=== PATIENT | male | born 1965 | race Caucasian/White ===

== ENCOUNTER 2020-10-03 21:17 | Emergency (ER) | payer OTHER ==
[2020-10-04 00:22] LABS: Absolute Lymphocytes (CBC) 1.7 K/uL (0.7-4.9); Basophils % 1.2 % (0-1.3); Hematocrit 41.4 % (39.6-49.0); Lymphocytes % 24.3 % (15.3-44.8); MPV 7.7 fL (7.6-11.3); RBC Red Blood Cell Count 4.02 M/uL (4.33-5.43)
[2020-10-04 00:33] LABS: ALT/SGPT 46 U/L (12-78); AST/SGOT 36 U/L (15-37); Albumin 3.8 g/dL (3.4-5.0); Alkaline Phosphatase 63 U/L (45-117); BUN Blood Urea Nitrogen 10 mg/dL (7-18); Bicarbonate 27 mmol/L (21-32); Bilirubin Total 0.6 mg/dL (0.2-1.0); Glucose Level 75 mg/dL (74-106); Potassium 3.9 mmol/L (3.5-5.1); Sodium Level 129 mmol/L (136-145)
--- NOTE | 2020-10-04 00:51 | EDPHYS ---
Physician Documentation [facility] Name: Juni Soloroi Age: 55 yrs Sex: Male : 1965 Arrival Date: 10/03/2020 Time: 21:20 Bed 18 Private MD: Lennox Cummings T ED Physician Thiago Moody HPI: 10/03 23:39 This 55 yrs old Male presents to ER via Ambulatory with complaints of pm1 Diarrhea, Cough, Sweats, chills. 23:39 The patient presents to the emergency department with diarrhea, cough. Onset: The pm1 symptoms/episode began/occurred yesterday. Possible causes: unknown, sick contacts, by a significant other, similar symptoms. The symptoms are aggravated by nothing. The symptoms are alleviated by nothing. Associated signs and symptoms: Pertinent negatives: shortness of breath, chest pain. Severity of symptoms: in the emergency department the symptoms are unchanged. The patient has not recently seen a physician. Patient presents to ER with complaints of diarrhea cough congestion and chills. Patient reports a history of pica, chewing ice.. Historical: - Allergies: 21:56 No Known Allergies; ca1 - PMHx: 21:56 Depressive disorder; Hypercholesterolemia; ca1 - Immunization history:: Client reports having NOT received the Covid vaccine. - Social history:: Smoking status: Patient reports the use of cigarette tobacco products, smokes one-half pack cigarettes per day. ROS: 23:39 Cardiovascular: Negative for chest pain, palpitations, and edema. pm1 23:39 MS/Extremity: Negative for injury and deformity, Skin: Negative for injury, rash, and discoloration. 23:39 Constitutional: Positive for chills, fatigue, Negative for fever, poor PO intake. 23:39 Respiratory: Positive for cough, Negative for shortness of breath, sputum production. 23:39 Abdomen/GI: Positive for diarrhea, Negative for abdominal pain, nausea and vomiting. 23:39 All other systems are negative. Exam: 23:39 Constitutional: This is a well developed, well nourished patient who is awake, alert, pm1 and in no acute distress. Head/Face: Normocephalic, atraumatic. Cardiovascular: Regular rate and rhythm with a normal S1 and S2. No gallops, murmurs, or rubs. Normal PMI, no JVD. No pulse deficits. Respiratory: Lungs have equal breath sounds bilaterally, clear to auscultation and percussion. No rales, rhonchi or wheezes noted. No increased work of breathing, no retractions or nasal flaring. Abdomen/GI: Soft, non-tender, with normal bowel sounds. No distension or tympany. No guarding or rebound. No evidence of tenderness throughout. Back: No spinal tenderness. No costovertebral tenderness. Full range of motion. Skin: Warm, dry with normal turgor. Normal color with no rashes, no lesions, and no evidence of cellulitis. MS/ Extremity: Pulses equal, no cyanosis. Neurovascular intact. Full, normal range of motion. 23:39 Eyes: Exam is negative for acute changes. 23:39 ENT: Exam is negative for acute changes. 23:39 Neuro: Exam negative for acute changes, Orientation: is normal, Mentation: is normal, Motor: is normal, moves all fours. Vital Signs: 21:55 BP 136 / 85; Pulse 63; Resp 18 S; Temp 98.3(TE); Pulse Ox 100% on R/A; Weight 54.43 kg ca1 (R); Height 6 ft. 1 in. (185.42 cm) (R); 23:15 BP 131 / 66; Pulse 66; Resp 18; Temp 98.7(O); Pulse Ox 100% ; ld1 21:55 Body Mass Index 15.83 (54.43 kg, 185.42 cm) ca1 MDM: 23:21 Patient medically screened. pm1 10/04 00:50 Data reviewed: vital signs. Data interpreted: Pulse oximetry: on room air is 100 %. pm1 Interpretation: normal. Counseling: I had a detailed discussion with the patient and/or guardian regarding: the historical points, exam findings, and any diagnostic results supporting the discharge/admit diagnosis, lab results, radiology results, the need for outpatient follow up, to return to the emergency department if symptoms worsen or persist or if there are any questions or concerns that arise at home. 10/03 21:58 Order name: Flu; Complete Time: 02:39 ca1 10/03 23:36 Order name: CBC with Diff pm1 10/03 23:36 Order name: CMP pm1 10/03 23:36 Order name: CBC with Automated Diff; Complete Time: 00:30 EDMS 08/03 23:37 Order name: Comprehensive Metabolic Panel; Complete Time: 00:36 EDMS 10/03 23:36 Order name: IV Saline Lock pm1 10/03 23:37 Order name: Chest Single View XRAY pm1 10/03 23:39 Order name: SARS-COV-2 RT PCR; Complete Time: 00:09 EDMS Administered Medications: 10/03 23:42 Drug: NS 0.9% 1000 ml Route: IV; Rate: 1000 ml; Site: left antecubital; ak2 Disposition: 10/04 04:23 Co-signature as Attending Physician, Thiago Moody MD. [email or web address] Disposition Summary: 10/04/20 00:50 Discharge Ordered Location: Home pm1 Problem: new pm1 Symptoms: have improved pm1 Condition: Stable pm1 Diagnosis - Acute upper respiratory infection, unspecified pm1 - Diarrhea, unspecified pm1 Followup: pm1 - With: Emergency Department - When: As needed - Reason: Worsening of condition Followup: pm1 - With: Private Physician - When: 2 - 3 days - Reason: Recheck today's complaints, Continuance of care, Re-evaluation by your physician Discharge Instructions: - Discharge Summary Sheet pm1 - Food Choices to Help Relieve Diarrhea, Adult pm1 - Diarrhea, Adult pm1 - Upper Respiratory Infection, Adult pm1 Forms: - Medication Reconciliation Form pm1 - Thank You Letter pm1 - Antibiotic Education pm1 - Prescription Opioid Use pm1 - Work release form ak2 Signatures: Dispatcher [employer] EDDC Dexter Obrien NP CHEMICAL PREPARER pm1 Laurel Hinton RN RN ca1 Thiago Moody MD MD [facility] Hussein Cerda ne2 Corrections: (The following items were deleted from the chart) 10/03 22:15 21:58 CORONAVIRUS+BRZ ordered. EDDC EDDC
--- NOTE | 2020-10-04 00:51 | ER ---
Nurse's Notes [facility] Name: Juni Solorio Age: 55 yrs Sex: Male : 1965 Arrival Date: 10/03/2020 Time: 21:20 Bed 18 Private MD: Lennox Cummings T Diagnosis: Acute upper respiratory infection, unspecified;Diarrhea, unspecified Presentation: 10/03 21:55 Chief complaint: Patient states: Cough, chills, sweating and diarrhea since yesteday. ca1 Coronavirus screen: Client denies travel out of the [place] in the last 14 days. chills, cough unrelated to allergies, diarrhea, Client presents with at least one sign or symptom that may indicate coronavirus-19. Standard/surgical mask placed on the client. Provider contacted for isolation considerations. Ebola Screen: Patient negative for fever greater than or equal to 101.5 degrees Fahrenheit, and additional compatible Ebola Virus Disease symptoms Patient denies exposure to infectious person. Patient denies travel to an Ebola-affected area in the 21 days before illness onset. No symptoms or risks identified at this time. Initial Sepsis Screen: Does the patient meet any 2 criteria? No. Patient's initial sepsis screen is negative. Does the patient have a suspected source of infection? No. Patient's initial sepsis screen is negative. Risk Assessment: Do you want to hurt yourself or someone else? Patient reports no desire to harm self or others. Onset of symptoms was October 02, 2020. 21:55 Method Of Arrival: Ambulatory ca1 21:55 Acuity: ELVIN 3 ca1 Historical: - Allergies: 21:56 No Known Allergies; ca1 - PMHx: 21:56 Depressive disorder; Hypercholesterolemia; ca1 - Immunization history:: Client reports having NOT received the Covid vaccine. - Social history:: Smoking status: Patient reports the use of cigarette tobacco products, smokes one-half pack cigarettes per day. Screenin:15 Abuse screen: Denies threats or abuse. Denies injuries from another. Nutritional ld1 screening: No deficits noted. Tuberculosis screening: No symptoms or risk factors identified. Fall Risk None identified. Assessment: 23:15 General: Appears in no apparent distress. comfortable, Behavior is calm, cooperative, ld1 appropriate for age. Pain: Denies pain. Neuro: Level of Consciousness is awake, alert, obeys commands, Oriented to person, place, time, situation. Cardiovascular: Capillary refill < 3 seconds Patient's skin is warm and dry. Respiratory: Airway is patent Respiratory effort is even, unlabored, Respiratory pattern is regular, symmetrical. Respiratory: Reports cough that is. GI: Abdomen is flat, non-distended, Reports diarrhea. : No signs and/or symptoms were reported regarding the genitourinary system. EENT: No signs and/or symptoms were reported regarding the EENT system. Derm: No signs and/or symptoms reported regarding the dermatologic system. Musculoskeletal: No signs and/or symptoms reported regarding the musculoskeletal system. Vital Signs: 21:55 BP 136 / 85; Pulse 63; Resp 18 S; Temp 98.3(TE); Pulse Ox 100% on R/A; Weight 54.43 kg ca1 (R); Height 6 ft. 1 in. (185.42 cm) (R); 23:15 BP 131 / 66; Pulse 66; Resp 18; Temp 98.7(O); Pulse Ox 100% ; ld1 21:55 Body Mass Index 15.83 (54.43 kg, 185.42 cm) ca1 ED Course: 21:20 Patient arrived in ED. es 21:21 Lennox Cummings MD is Private Physician. es 21:56 Triage completed. ca1 21:56 Arm band placed on right wrist. ca1 23:05 Antionette Snider, ZACK is Primary Nurse. ld1 23:15 Dexter Obrien NP is PHCP. pm1 23:15 Thiago Moody MD is Attending Physician. pm1 23:15 Patient has correct armband on for positive identification. Bed in low position. Call ld1 light in reach. Side rails up X2. Pulse ox on. NIBP on. Door closed. Noise minimized. Warm blanket given. 23:15 No provider procedures requiring assistance completed. ld1 10/04 00:14 Chest Single View XRAY In Process Unspecified. EDMS Administered Medications: 10/03 23:42 Drug: NS 0.9% 1000 ml Route: IV; Rate: 1000 ml; Site: left antecubital; ak2 Outcome: 10/04 00:50 Discharge ordered by . pm1 01:11 Patient left the ED. em Signatures: Dispatcher [employer] EDOK Loraine Ames Edgar, RN RN em Dexter Obrien, DIGITAL CONTENT MARKETING MANAGER DIGITAL CONTENT MARKETING MANAGER pm1 Laurel Hinton, RN RN ca1 Antionette Snider RN RN ld1 Hussein Cerda
[2020-10-04 01:48] VITALS: O2SAT 100
[2020-10-04 01:50] VITALS: BP 131/66; TEMP 98.7
--- NOTE | 2020-10-04 12:08 | RAD REPORT ---
EXAM DESCRIPTION: Chest Radiography COMPARISON: None. CLINICAL HISTORY: COUGH FINDINGS: A single AP view of the chest demonstrates a normal cardiomediastinal silhouette. No pneumothorax or pleural effusion. No consolidation or pulmonary edema. Osseous structures are intact. IMPRESSION: No acute chest process. Electronically signed by: Jorge Rollins MD 10/04/2020 1:11 AM CDT Due to temporary technical issues with the PACS/Fluency reporting system, reports are being signed by the in house radiologists without review as a courtesy to insure prompt reporting. The interpreting radiologist is fully responsible for the content of the report.
== END 2020-10-04 01:11 | disposition home or self-care (01) ==
LOC: ER 21:17
DX: J06.9 Acute upper respiratory infection, unspecified (principal); Z20.822 Contact with and (suspected) exposure to COVID-19; F17.210 Nicotine dependence, cigarettes, uncomplicated
CPT/HCPCS: 85025; 36415; 80053; 87804 ×2; 71045; 99283; U0003

== ENCOUNTER 2020-10-06 07:19 | Emergency (ER) | payer OTHER ==
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
--- NOTE | 2020-10-06 07:56 | ER ---
Nurse's Notes [facility] Name: Juni Solorio Age: 55 yrs Sex: Male : 1965 Arrival Date: 10/06/2020 Time: 07:22 Bed Waiting Private MD: Diagnosis: Anxiety disorder, unspecified;Paranoid personality disorder Presentation: 10/06 07:36 Chief complaint: Patient states: feels like he is going to have a nervous breakdown. Pt aa5 reports running out of Diazepam for a month. Pt reports being seen here 3 days ago and dx with upper respiratory infection. Risk Assessment: Do you want to hurt yourself or someone else? Patient reports no desire to harm self or others. Onset of symptoms was 2020. 07:36 Method Of Arrival: Ambulatory aa5 07:36 Coronavirus screen: The client reports previous COVID testing was negative. aa5 07:36 Ebola Screen: Patient negative for fever greater than or equal to 101.5 degrees aa5 Fahrenheit, and additional compatible Ebola Virus Disease symptoms. 07:40 Initial Sepsis Screen: Does the patient meet any 2 criteria? No. Patient's initial aa5 sepsis screen is negative. Does the patient have a suspected source of infection? No. Patient's initial sepsis screen is negative. 07:40 Acuity: ELVIN 4 aa5 Historical: - Allergies: 07:39 No Known Allergies; aa5 - Home Meds: 07:39 diazepam 5 mg Oral tab [Active]; aa5 - PMHx: 07:36 depressive disorder; Hypercholesterolemia; aa5 - Immunization history:: Client reports having NOT received the Covid vaccine. Flu vaccine is not up to date. - Social history:: Smoking status: Patient reports the use of cigarette tobacco products, smokes one-half pack cigarettes per day. Screenin:40 Abuse screen: Denies threats or abuse. Nutritional screening: No deficits noted. aa5 Tuberculosis screening: No symptoms or risk factors identified. Fall Risk None identified. Assessment: 07:40 General: Appears comfortable, Behavior is calm, cooperative, Reports anxiety. Pain: aa5 Denies pain. Neuro: Level of Consciousness is awake, alert, obeys commands, Oriented to person, place, time, situation. Cardiovascular: Denies chest pain, shortness of breath, Patient's skin is warm and dry. Respiratory: Airway is patent Respiratory effort is even, unlabored, Respiratory pattern is regular, symmetrical. GI: Patient currently denies diarrhea, nausea, vomiting. : No signs and/or symptoms were reported regarding the genitourinary system. EENT: No signs and/or symptoms were reported regarding the EENT system. Derm: Skin is pink, warm \T\ dry. Musculoskeletal: Range of motion: intact in all extremities. 07:42 Reassessment: Dr. Gamez examining pt in triage. . aa5 08:00 Reassessment: Patient is alert, oriented x 3, equal unlabored respirations, skin aa5 warm/dry/pink. Vital Signs: 07:40 BP 138 / 80; Pulse 80; Resp 18 S; Temp 99.0(TE); Pulse Ox 100% on R/A; Weight 54.43 kg aa5 (R); Height 6 ft. 1 in. (185.42 cm) (R); Pain 0/10; 07:40 Body Mass Index 15.83 (54.43 kg, 185.42 cm) aa5 ED Course: 07:22 Patient arrived in ED. as 07:28 Umesh Gamez MD is Attending Physician. kdr 07:36 Arm band placed on. aa5 07:36 Patient has correct armband on for positive identification. Adult w/ patient. aa5 07:41 Triage completed. aa5 08:00 No provider procedures requiring assistance completed. Patient did not have IV access aa5 during this emergency room visit. 08:06 Sandra Rodriguez, RN is Primary Nurse. aa5 Administered Medications: No medications were administered Outcome: 07:56 Discharge ordered by . kdr 08:00 Discharged to home ambulatory, with family. aa5 08:00 Condition: stable 08:00 Discharge instructions given to patient, family, Instructed on discharge instructions, follow up and referral plans. medication usage, Demonstrated understanding of instructions, follow-up care, medications, Prescriptions given X 1. 08:06 Patient left the ED. aa5 Signatures: Umesh Gamez MD MD kdr Alanna Solorzano as Sandra Rodriguez, RN RN aa5 Corrections: (The following items were deleted from the chart) 07:38 07:36 Chief complaint: Patient states: feels like he is going to have a nervous aa5 breakdown. Pt reports running out of Diazepam for a month. aa5 07:38 07:36 Chief complaint: Patient states: feels like he is going to have a nervous aa5 breakdown. Pt reports running out of Diazepam for a month. aa5
[2020-10-06 08:14] VITALS: BP 138/80; TEMP 99; O2SAT 100
== END 2020-10-06 08:06 | disposition home or self-care (01) ==
LOC: ER 07:19
DX: F60.0 Paranoid personality disorder (principal); F32.9 Major depressive disorder, single episode, unspecified; F17.210 Nicotine dependence, cigarettes, uncomplicated
CPT/HCPCS: 99282

== ENCOUNTER 2020-10-30 16:41 | Emergency (ER) | payer OTHER ==
[2020-10-30 17:19] LABS: Absolute Lymphocytes (CBC) 1.2 K/uL (0.7-4.9); Basophils % 0.9 % (0-1.3); Hematocrit 35.7 % (39.6-49.0); Lymphocytes % 17.1 % (15.3-44.8); MPV 7.8 fL (7.6-11.3); RBC Red Blood Cell Count 3.54 M/uL (4.33-5.43)
[2020-10-30 17:22] LABS: Protime INR 1.05
[2020-10-30 17:57] LABS: ALT/SGPT 29 U/L (12-78); AST/SGOT 18 U/L (15-37); Albumin 3.2 g/dL (3.4-5.0); Alkaline Phosphatase 52 U/L (45-117); BUN Blood Urea Nitrogen 10 mg/dL (7-18); Bicarbonate 24 mmol/L (21-32); Bilirubin Direct 0.1 mg/dL (0-0.2); Bilirubin Total 0.3 mg/dL (0.2-1.0); Glucose Level 135 mg/dL (74-106); Potassium 4.1 mmol/L (3.5-5.1); Protein, Total 6.1 g/dL (6.4-8.2); Sodium Level 126 mmol/L (136-145)
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
[2020-10-30] MEDS ORDERED: LIDOCAINE 1% 20 ML MDV ONE (19:52)
[2020-10-30] MEDS ORDERED: CEFAZOLIN/SWI 1gm 1 GM/10 ML SYR ONE (19:53)
[2020-10-30] MEDS ORDERED: TETANUS & DIPHTHERIA TOX,ADULT 0.5 ML VIAL ONE (19:53)
[2020-10-30 20:46] LABS: Urine Blood Trace-intact (Negative); Urine Glucose Negative (Negative); Urine Protein Negative (Negative)
[2020-10-30 21:07] LABS: Hematocrit 37.4 % (39.6-49.0)
[2020-10-30 21:13] LABS: Barbiturates NEGATIVE (NEGATIVE); Benzodiazepines POSITIVE (NEGATIVE); Cocaine NEGATIVE (NEGATIVE); METHAMPHETAM NEGATIVE (NEGATIVE); Methadone NEGATIVE (NEGATIVE); Opiates NEGATIVE (NEGATIVE); Phencyclidine NEGATIVE (NEGATIVE); THC Cannibis NEGATIVE (NEGATIVE)
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
[2020-10-30 23:53] LABS: BUN Blood Urea Nitrogen 9 mg/dL (7-18); Bicarbonate 26 mmol/L (21-32); Glucose Level 98 mg/dL (74-106); Potassium 4.4 mmol/L (3.5-5.1); Sodium Level 126 mmol/L (136-145)
[2020-10-31] MEDS ORDERED: NA CHLORIDE 0.9% 1,000 ML ONE (00:26)
[2020-10-31 06:58] VITALS: BP 105/72; O2SAT 99
--- NOTE | 2020-10-31 16:14 | EKG ---
Test Date: 2020-10-30 Test Time: 16:47:17 Singing Teacher: ALP MEASUREMENT RESULTS: Intervals: Rate: 72 MA: 144 QRSD: 90 QT: 398 QTc: 435 Outlook: P: 79 MA: 144 QRS: -5 T: 72 INTERPRETIVE STATEMENTS: Normal sinus rhythm Normal ECG Compared to ECG 07/28/2009 13:26:16 No significant changes Electronically Signed On 10-31-20 16:11:47 CDT by Jr Arias
== END 2020-10-31 06:36 ==
LOC: ER 16:41
PROC: 0JQL0ZZ Repair Right Upper Leg Subcutaneous Tissue and Fascia, Open Approach (ICD-10-PCS; principal; 2020-10-31)
DX: S71.111A Laceration without foreign body, right thigh, initial encounter (principal); X78.1XXA Intentional self-harm by knife, initial encounter; F32.9 Major depressive disorder, single episode, unspecified; F17.210 Nicotine dependence, cigarettes, uncomplicated; Z23 Encounter for immunization; Z20.822 Contact with and (suspected) exposure to COVID-19
CPT/HCPCS: 93005; 85025; 80048 ×2; 36415; 80320; 86900; 86850; 80329 ×2; 85610; 86901; 80076; 85730; 85018; 85014; 81003; 80307; 73706; 90471; 90714; 96374; 99285; 12001; U0003; Q9967; J0690; J7030